=== PATIENT | female | born 1980 | race Caucasian/White ===

== ENCOUNTER 2019-01-01 05:36 | Inpatient (IN) | payer BC ==
[2019-01-01] MEDS ORDERED: Lidocaine 1% (PF) 30 ML VIAL SC PRN (05:40)
[2019-01-01] MEDS ORDERED: Acetaminophen 500 MG TAB PO PRN (05:40)
[2019-01-01] MEDS ORDERED: Butorphanol Tartrate 1 MG/ML VIAL SLOW IVP PRN (05:40)
[2019-01-01] MEDS ORDERED: HYDROcodone/Acetaminophen 5/325 mg Tablet PO PRN (05:40)
[2019-01-01] MEDS ORDERED: Promethazine HCl 25 MG/ML VIAL IM PRN ×2 (05:40→08:23)
[2019-01-01] MEDS ORDERED: Ondansetron PF 4 MG/2 ML Vial IVP PRN ×2 (05:40→08:23)
[2019-01-01] MEDS ORDERED: Ibuprofen 800 MG TAB PO PRN (05:40)
[2019-01-01] MEDS ORDERED: NS w/ Oxytocin 10 units 500 ML IV SCH (05:40)
[2019-01-01] MEDS ORDERED: NS / Oxytocin 40 units/1000ml 1,000 ML IV PRN (05:40)
[2019-01-01] MEDS ORDERED: hydrALAZINE 20 MG/ML VIAL SLOW IVP PRN ×2 (05:40→17:05)
[2019-01-01 06:16] VITALS: BMI 33.4
[2019-01-01] MEDS: Lactated Ringer's 1,000 ML IV SCH ×3 (06:21→14:36)
[2019-01-01 06:36] LABS: Hemoglobin 12.5 g/dL (12.0-16.0); Mean Corpuscular HGB CONC 34.1 g/dL (32.0-36.0); Mean Corpuscular Hemoglobin 29.4 pg (27.0-31.0); Mean Platelet Volume 7.6 fL (7.4-10.4); Platelet Count 261 thou/uL (130-400); RBC Distribution Width 13.1 % (11.5-14.5); Red Blood Cell (RBC) Count 4.25 mill/uL (4.20-5.40); White Blood Cell (WBC) Count 9.8 thou/uL (4.8-10.8)
[2019-01-01] MEDS ORDERED: Penicillin G Potassium 5 MILL.UNITS in Sodium Chloride 0.9% 100 ML IVPB SCH (07:00)
[2019-01-01 07:15] LABS: Hep B Surf Ag Non-Reactive S/CO (NonReactive)
[2019-01-01 07:17] LABS: Syphilis Antibody Nonreactive (Nonreactive); Syphilis Antibody Index 0.02 S/CO (<1.00 Non-Reactive)
[2019-01-01] MEDS ORDERED: Fentanyl 4 mcg/Bup 0.1% Cadd 100 ML ONE ×2 (07:25→14:38)
[2019-01-01] MEDS ORDERED: Acetaminophen 325 MG TAB PO PRN (08:23)
[2019-01-01] MEDS ORDERED: diphenhydrAMINE 50 MG/ML VIAL IVP PRN (08:23)
[2019-01-01] MEDS ORDERED: Naloxone HCl 0.4 mg/ml Vial IVP PRN ×2 (08:23)
[2019-01-01] MEDS ORDERED: Lactated Ringer's 500 ML IV PRN (08:23)
[2019-01-01] MEDS ORDERED: ePHEDrine/0.9% NaCl/PF SYRINGE 50 mg/10 ml SLOW IVP PRN (08:23)
[2019-01-01] MEDS ORDERED: Fentanyl 4 mcg/Bupivacaine 0.1% Cassette 100 ML EPIDURAL SCH (08:30)
[2019-01-01] MEDS ORDERED: Communication Order-Pharmacy FS SCH (08:30)
[2019-01-01] MEDS ORDERED: Ondansetron PF 4 MG/2 ML Vial ONE ×2 (08:56→14:46)
[2019-01-01] MEDS: Penicillin G 2.5 MILL.units 2.5 MILL.UNITS in Premix Bag 1 BAG IVPB SCH ×2 (10:30→14:31)
--- NOTE | 2019-01-01 12:45 | PDOC.EVN ---
Event Note - Event Note Event Note: AROM NOTE Time: 1240 Loc: Bed 2 Asked to perform AROM by DR Moy. Last exam at around 0900 was 6cm...now by me: /petersonic. I explained AROM to patient nad family. AROM done without issue. No IUPC placed due to cervical progress. Pitocin in use, and PCN. DAR in use I reviewed FHTs pre and post...Cat 1
--- NOTE | 2019-01-01 17:04 | PDOC.OPDEL ---
OB Operative/Delivery Note Delivery Dr/Surgeon: Farzaneh Pre-Delivery Diagnosis: medically indicated induction Procedure/Post Delivery Dx: spontaneous vaginal delivery Weeks gestation: 39 Anesthesia: epidural - Findings A Sex: male - 1 min: 9 - 5 min: 9 - Additional Findings/Plan Placenta delivered: spontaneous Repaired Obstetrical Laceration: 1st degree Estimated blood loss: qbl 282ml Compilations/Other Findings: none Post delivery plan: routine recovery
[2019-01-01] MEDS ORDERED: Lanolin Ointment 7 GM TUBE TOP PRN (17:05)
[2019-01-01] MEDS ORDERED: diphenhydrAMINE 25 MG CAP PO PRN (17:05)
[2019-01-01] MEDS ORDERED: Benzocaine-Menthol 82.5 ML CAN TOP PRN (17:05)
[2019-01-01] MEDS ORDERED: Milk Of Magnesia 30 ML UDCUP PO PRN (17:05)
[2019-01-01] MEDS ORDERED: Misoprostol 200 MCG TAB VAG PRN (17:05)
[2019-01-01] MEDS ORDERED: traMADol HCl 50 MG TAB PO PRN (17:05)
[2019-01-01] MEDS ORDERED: Adacel (T-DAP) 0.5 ML SYRINGE IM ONE (17:05)
[2019-01-01] MEDS ORDERED: Bisacodyl 10 MG SUPP PR PRN (17:05)
[2019-01-01] MEDS ORDERED: Lidocaine 2% MPF 10 ML AMP (For Epidural Use) ONE (18:00)
[2019-01-01] MEDS ORDERED: Bupivacaine/Epinephrine 0.25% 30 ML VIAL ONE (18:00)
[2019-01-01] MEDS ORDERED: Bupivacaine 0.25% HCL 30 ML VIAL ONE (18:00)
[2019-01-01] MEDS: NS / Oxytocin 40 units/1000ml 1,000 ML IV SCH ×2 (18:05→21:03)
[2019-01-01] MEDS: Docusate Calcium (SURFAK) 240 MG CAP PO SCH (21:05)
[2019-01-01] MEDS: Ibuprofen 800 MG TAB PO SCH (21:05)
[2019-01-01] MEDS ORDERED: Sodium Chloride 0.9% 10 ML ONE (22:27)
[2019-01-02] MEDS: Ibuprofen 800 MG TAB PO SCH ×3 (06:07→21:03)
--- NOTE | 2019-01-02 07:54 | PDOC.PP ---
Post Progress Note Post Day #: 0-1 Subjective: Working on breast feeding. PO intake tolerated: yes Flatus: yes Ambulation: yes Vital Signs (12 hours) Temp Pulse Resp BP 01/02/19 06:07 97.6 F 66 18 129/73 01/02/19 01:59 98.1 F 71 18 120/76 01/01/19 21:52 72 18 131/85 01/01/19 20:55 79 18 131/70 Weight Weight 201 lb Result Diagrams: 01/01/19 06:22 Additional Labs: Post Labs Blood Type A POSITIVE 01/01/19 07:05 Hep Bs Antigen Non-Reactive S/CO (NonReactive) 01/01/19 06:22 - Assessment/Plan Post day 0-1. . Doing well. Routine care. D/c 01/03...
[2019-01-02] MEDS: Ferrous Sulfate 325 MG TAB PO SCH ×2 (08:20→17:46)
[2019-01-02] MEDS: Prenatal Vitamin 1 TAB PO SCH (08:23)
[2019-01-02] MEDS: Docusate Calcium (SURFAK) 240 MG CAP PO SCH ×2 (08:23→21:03)
[2019-01-03] MEDS: Ibuprofen 800 MG TAB PO SCH ×2 (04:49→14:30)
--- NOTE | 2019-01-03 07:55 | PDOC.PP ---
Post Progress Note Post Day #: 2 PO intake tolerated: yes Flatus: yes Ambulation: yes Vital Signs (12 hours) Temp Pulse Resp BP Pulse Ox 01/02/19 21:00 98.1 F 84 18 118/60 98 Weight Weight 201 lb Result Diagrams: 01/01/19 06:22 Additional Labs: Post Labs Blood Type A POSITIVE 01/01/19 07:05 Hep Bs Antigen Non-Reactive S/CO (NonReactive) 01/01/19 06:22 - Assessment/Plan Post day 1-2. Doing well.. D/c home today. Follow up in 6 weeks.
[2019-01-03 07:57] VITALS: BP 112/60; TEMP 97.9
[2019-01-03] MEDS: Prenatal Vitamin 1 TAB PO SCH (08:57)
[2019-01-03] MEDS: Docusate Calcium (SURFAK) 240 MG CAP PO SCH (08:57)
[2019-01-03] MEDS: Ferrous Sulfate 325 MG TAB PO SCH (08:57)
== END 2019-01-03 16:40 | disposition home or self-care (01) | DRG 807 ==
LOC: L&D 05:36 → 3SW 20:13
PROVIDERS: ADMIT Obstetrics & Gynecology; ATTEND Obstetrics & Gynecology
PROC: 10E0XZZ Delivery of Products of Conception, External Approach (ICD-10-PCS; principal; 2019-01-01)
PROC: 10907ZC Drainage of Amniotic Fluid, Therapeutic from Products of Conception, Via Natural or Artificial Opening (ICD-10-PCS; 2019-01-01)
PROC: 0HQ9XZZ Repair Perineum Skin, External Approach (ICD-10-PCS; 2019-01-01)
DX: O99.824 Streptococcus B carrier state complicating childbirth (principal); Z37.0 Single live birth; O70.0 First degree perineal laceration during delivery; O99.284 Endocrine, nutritional and metabolic diseases complicating childbirth; E03.9 Hypothyroidism, unspecified; Z3A.39 39 weeks gestation of pregnancy
CPT/HCPCS: 36415; 36416; 51702; 85027; 86780; 86850; 86900; 86901; 87340; J2001; J2405; J2540; J2590; J3490; S0020

== ENCOUNTER 2020-02-21 08:12 | Outpatient (CLI) | payer BC, OTHER ==
[2020-02-21 17:19] LABS: SARS-CoV-2 MS2 Positive; SARS-CoV-2 N Gene Negative; SARS-CoV-2 S Gene Negative; SARS-CoV-2 by NAA Not Detected (NotDetected); SARS-CoV-2 orf1ab Negative
== END 2020-02-21 08:13 | disposition home or self-care (01) ==
LOC: LABSCS 08:12
PROVIDERS: ATTEND Obstetrics & Gynecology
DX: Z20.828 Contact with and (suspected) exposure to other viral communicable diseases (principal)
CPT/HCPCS: 87635; U0003

== ENCOUNTER 2020-02-26 05:21 | Inpatient (IN) | payer BC, OTHER ==
[2020-02-26] MEDS ORDERED: hydrALAZINE 20 MG/ML VIAL SLOW IVP PRN ×2 (05:44→10:35)
[2020-02-26] MEDS ORDERED: Ibuprofen 800 MG TAB PO PRN (05:44)
[2020-02-26] MEDS ORDERED: NS w/ Oxytocin 10 units 500 ML IV SCH (05:44)
[2020-02-26] MEDS ORDERED: NS / Oxytocin 40 units/1000ml 1,000 ML IV PRN (05:44)
[2020-02-26] MEDS ORDERED: Misoprostol 200 MCG TAB PR PRN (05:44)
[2020-02-26] MEDS ORDERED: Butorphanol Tartrate 1 MG/ML VIAL SLOW IVP PRN (05:44)
[2020-02-26] MEDS ORDERED: Diphenoxylate HCl/Atropine Tablet PO PRN ×2 (05:44)
[2020-02-26] MEDS ORDERED: Carboprost 250 MCG/ML AMP IM PRN (05:44)
[2020-02-26] MEDS ORDERED: Methylergonovine 0.2 MG/ML VIAL IM PRN (05:44)
[2020-02-26] MEDS ORDERED: Ondansetron PF 4 MG/2 ML Vial IVP PRN ×2 (05:44→07:43)
[2020-02-26] MEDS ORDERED: Promethazine HCl 25 MG/ML VIAL IM PRN ×2 (05:44→07:43)
[2020-02-26] MEDS ORDERED: Lactated Ringer's 1,000 ML IV SCH (05:44)
[2020-02-26] MEDS ORDERED: Acetaminophen 500 MG TAB PO PRN (05:44)
[2020-02-26] MEDS ORDERED: HYDROcodone/Acetaminophen 5/325 mg Tablet PO PRN (05:44)
[2020-02-26] MEDS ORDERED: Lidocaine 1% (PF) 30 ML VIAL SC PRN (05:44)
[2020-02-26 05:57] VITALS: BMI 32.8
[2020-02-26 06:04] LABS: Hemoglobin 12.5 g/dL (12.0-16.0); Mean Corpuscular HGB CONC 33.3 g/dL (32.0-36.0); Mean Corpuscular Hemoglobin 28.8 pg (27.0-31.0); Mean Corpuscular Volume 86.4 fL (78.0-98.0); Mean Platelet Volume 7.5 fL (7.4-10.4); Platelet Count 275 thou/uL (130-400); RBC Distribution Width 12.5 % (11.5-14.5); Red Blood Cell (RBC) Count 4.33 mill/uL (4.20-5.40); White Blood Cell (WBC) Count 9.5 thou/uL (4.8-10.8)
[2020-02-26] MEDS ORDERED: Fentanyl 4 mcg/Bup 0.1% Cadd 100 ML ONE (06:19)
[2020-02-26 06:38] LABS: HBSAg Index 0.17 S/CO (0-0.99); Hep B Surf Ag Non-Reactive S/CO (NonReactive)
[2020-02-26 06:41] LABS: Syphilis Antibody Nonreactive (Nonreactive); Syphilis Antibody Index 0.03 S/CO (<1.00 Non-Reactive)
[2020-02-26] MEDS ORDERED: Naloxone HCl 0.4 mg/ml Vial IV PRN (07:43)
[2020-02-26] MEDS ORDERED: diphenhydrAMINE 50 MG/ML VIAL IVP PRN (07:43)
[2020-02-26] MEDS ORDERED: Lactated Ringer's 500 ML IV PRN (07:43)
[2020-02-26] MEDS ORDERED: EPHEDRINE 25 MG/5 ML SYRINGE SLOW IVP PRN (07:43)
[2020-02-26] MEDS ORDERED: Acetaminophen 325 MG TAB PO PRN (07:43)
[2020-02-26] MEDS ORDERED: Naloxone HCl 0.4 mg/ml Vial IVP PRN (07:43)
[2020-02-26] MEDS ORDERED: Fentanyl 4 mcg/Bupivacaine 0.1% Cassette 100 ML EPIDURAL SCH (07:45)
[2020-02-26] MEDS ORDERED: Communication Order-Pharmacy FS SCH (07:45)
[2020-02-26] MEDS ORDERED: Bupivacaine/Epinephrine 0.25% 30 ML VIAL ONE (10:02)
[2020-02-26] MEDS ORDERED: Preparation H Ointment 28 GM TUBE PR PRN (10:35)
[2020-02-26] MEDS ORDERED: Lanolin Ointment 7 GM TUBE TOP PRN (10:35)
[2020-02-26] MEDS ORDERED: traMADol HCl 50 MG TAB PO PRN (10:35)
[2020-02-26] MEDS ORDERED: Bisacodyl 10 MG SUPP PR PRN (10:35)
[2020-02-26] MEDS ORDERED: Benzocaine-Menthol 82.5 ML CAN TOP PRN (10:35)
[2020-02-26] MEDS ORDERED: Milk Of Magnesia 30 ML UDCUP PO PRN (10:35)
--- NOTE | 2020-02-26 10:35 | PDOC.OPDEL ---
OB Operative/Delivery Note Delivery Dr/Surgeon: Farzaneh Pre-Delivery Diagnosis: medically indicated induction Procedure/Post Delivery Dx: spontaneous vaginal delivery Weeks gestation: 39 Anesthesia: epidural - Findings A Sex: female - 1 min: 8 - 5 min: 9 - Additional Findings/Plan Placenta delivered: spontaneous Repaired Obstetrical Laceration: 1st degree Estimated blood loss: 120ml qbl Post delivery plan: routine recovery
[2020-02-26] MEDS ORDERED: NS / Oxytocin 40 units/1000ml 1,000 ML IV SCH (10:45)
[2020-02-26] MEDS: Ferrous Sulfate 325 MG TAB PO SCH (20:10)
[2020-02-26] MEDS: Ibuprofen 800 MG TAB PO SCH ×2 (20:10→21:09)
[2020-02-26] MEDS: Docusate Calcium (SURFAK) 240 MG CAP PO SCH (21:09)
[2020-02-27] MEDS: Ibuprofen 800 MG TAB PO SCH ×3 (06:40→21:52)
--- NOTE | 2020-02-27 08:04 | PDOC.PP ---
Post Progress Note Post Day #: 1 PO intake tolerated: yes Flatus: yes Ambulation: yes Vital Signs (12 hours) Temp Pulse Resp BP Pulse Ox 02/27/20 04:35 97.7 F 72 16 137/67 99 02/27/20 00:10 97.9 F 64 16 100/56 L 99 02/26/20 20:50 97.7 F 88 20 122/71 97 Weight Weight 197 lb - Physical Examination Abdominal: no distention, appropriately TTP Extremities: negative homans (B) Result Diagrams: 02/26/20 05:51 Additional Labs: Post Labs Hep Bs Antigen Non-Reactive S/CO (NonReactive) 02/26/20 05:51 Blood Type A POSITIVE 02/26/20 05:51 - Assessment/Plan Post day 1...Doing well. Plan for discharge today if baby released. F/u 6 weeks.
[2020-02-27] MEDS ORDERED: Adacel (T-DAP) 0.5 ML SYRINGE IM ONE (09:00)
[2020-02-27] MEDS: Prenatal Vitamin 1 TAB PO SCH (09:52)
[2020-02-27] MEDS: Ferrous Sulfate 325 MG TAB PO SCH ×2 (09:52→13:10)
[2020-02-27] MEDS: Docusate Calcium (SURFAK) 240 MG CAP PO SCH ×2 (09:53→21:52)
[2020-02-28] MEDS: Ibuprofen 800 MG TAB PO SCH (06:19)
[2020-02-28 07:49] VITALS: TEMP 98
[2020-02-28] MEDS: Ferrous Sulfate 325 MG TAB PO SCH (09:53)
[2020-02-28] MEDS: Prenatal Vitamin 1 TAB PO SCH (09:54)
[2020-02-28] MEDS: Docusate Calcium (SURFAK) 240 MG CAP PO SCH (09:55)
[2020-02-28 11:45] VITALS: BP 115/87
== END 2020-02-28 13:35 | disposition home or self-care (01) | DRG 807 ==
LOC: L&D 05:21 → 3SE 14:56
PROVIDERS: ADMIT Obstetrics & Gynecology; ATTEND Obstetrics & Gynecology
PROC: 10E0XZZ Delivery of Products of Conception, External Approach (ICD-10-PCS; principal; 2020-02-26)
PROC: 3E033VJ Introduction of Other Hormone into Peripheral Vein, Percutaneous Approach (ICD-10-PCS; 2020-02-26)
PROC: 0HQ9XZZ Repair Perineum Skin, External Approach (ICD-10-PCS; 2020-02-26)
DX: O70.0 First degree perineal laceration during delivery (principal); Z37.0 Single live birth; Z3A.39 39 weeks gestation of pregnancy
CPT/HCPCS: 36415; 85027; 86780; 86850; 86900; 86901; 87340; J2590